=== PATIENT | male | born 1960 | race Caucasian/White ===

== ENCOUNTER 2017-12-02 05:29 | Emergency (ER) | payer SELFPAY ==
[2017-12-02 05:37] VITALS: BP 145/83; PULSE 83; RESP 16; TEMP 98.1; O2SAT 96
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
[2017-12-02] MEDS ORDERED: DEPA500T3 PO (05:57)
[2017-12-02] MEDS ORDERED: CLON.5 PO (05:57)
[2017-12-02] MEDS ORDERED: MORPHINE SULFATE 4 MG/ML INJ IV PUSH ONE (06:00)
[2017-12-02] MEDS ORDERED: ONDANSETRON HCL 4 MG/2 ML VIAL IV PUSH ONE (06:00)
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
[2017-12-02 06:44] LABS: AUTOMATED NEUTROPHIL # 4.3 TH/MM3 (1.8-7.7); BASOPHIL % 0.6 % (0.0-2.0); EOSINOPHIL # 0.2 TH/MM3 (0-0.4); EOSINOPHIL % 2.4 % (0.0-4.0); HEMATOCRIT 43.1 % (39.0-51.0); LYMPH % 25.4 % (9.0-44.0); LYMPHOCYTE # 1.7 TH/MM3 (1.0-4.8); MEAN CORPUSCULAR HEMOGLOBIN 32.4 PG (27.0-34.0); MEAN CORPUSCULAR HGB CONC 34.9 % (32.0-36.0); MEAN PLATELET VOLUME 8.7 FL (7.0-11.0); MONO % 6.4 % (0.0-8.0); MONOCYTE # 0.4 TH/MM3 (0-0.9); NEUT % 65.2 % (16.0-70.0); PLATELET COUNT 223 TH/MM3 (150-450); RED BLOOD COUNT 4.64 MIL/MM3 (4.50-5.90); RED CELL DISTRIBUTION WIDTH 14.5 % (11.6-17.2); WHITE BLOOD COUNT 6.5 TH/MM3 (4.0-11.0)
[2017-12-02 06:58] VITALS: RESP 20
[2017-12-02 06:58] LABS: PROTHROMBIN TIME - PATIENT 10.3 SEC (9.8-11.6)
[2017-12-02 07:07] LABS: CALCIUM 8.5 MG/DL (8.5-10.1); CREATININE 1.08 MG/DL (0.60-1.30)
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
[2017-12-02] MEDS ORDERED: IOHEXOL 350 MG/ML 10 ML VIAL (for RAD DIAG) IVCONTRAST ONE (07:50)
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
[2017-12-02] MEDS ORDERED: MAPA500T13 PO (08:34)
[2017-12-02] MEDS ORDERED: IBUP1TAB7 PO (08:34)
== END 2017-12-02 08:55 | disposition home or self-care (01) ==
LOC: NEPD 05:29
DX: H11.31 Conjunctival hemorrhage, right eye (principal); R51 Headache; M50.322 Other cervical disc degeneration at C5-C6 level; M51.37 Other intervertebral disc degeneration, lumbosacral region; R10.9 Unspecified abdominal pain; N28.1 Cyst of kidney, acquired; Z72.0 Tobacco use; Y04.2XXA Assault by strike against or bumped into by another person, initial encounter
CPT/HCPCS: 70450; 70486; 71045; 72072; 72125; 72131; 74177; 80048; 85025; 85610; 85730; 96374; 96375; 99285; J2270; J2405; Q9967